=== PATIENT | male | born 1985 | race Caucasian/White ===

== ENCOUNTER 2021-06-26 20:38 | Inpatient (IN) | payer BC ==
[~2021-06-26] VITALS: Ht 175.3 cm; Wt 81.2 kg
[2021-06-26] MEDS ORDERED: LEVETIRACETAM 1000MG PREMIX 100 ML IV ONE (20:45)
[2021-06-26] MEDS ORDERED: SODIUM CHLORIDE 0.9% 1,000 ML IV ONE (20:45)
[2021-06-26] MEDS ORDERED: LORAZEPAM 2MG/ML CPJ IV ONE (20:45)
[2021-06-26 21:11] LABS: BASOPHILS % 0.3 % (0.0-2.0); EOSINOPHILS % 1.4 % (0.0-5.0); HEMATOCRIT. 45.2 % (42.0-52.0); HEMOGLOBIN. 15.1 g/dL (14.0-18.0); LYMPHOCYTES % 37.8 % (20.0-50.0); MEAN CORPUSCULAR HEMOGLOBIN 31.5 pg (28.0-32.0); MEAN CORPUSCULAR VOLUME 94.4 fL (80.0-94.0); MEAN PLATELET VOLUME 9.4 fl (7.4-10.4); MONOCYTES % 4.8 % (2.0-8.0); NEUTROPHILS % 55.7 % (40.0-76.0); PLATELET 176 x1000/uL (130-400); RED BLOOD CELL COUNT 4.79 mill/uL (4.7-6.1); RED CELL DISTRIBUTION WIDTH 13.6 % (11.6-14.6)
[2021-06-26 21:19] LABS: CHLORIDE 106 mEq/L (98-107)
[2021-06-26 21:34] LABS: CREATINE KINASE 102 IU/L (39-308); ETHANOL BLOOD < 10 mg/dL
[2021-06-27 00:48] LABS: CLARITY URINE CLEAR (CLEAR); COLOR URINE YELLOW (YELLOW); KETONES URINE TRACE (NEGATIVE); LEUKOCYTE ESTERASE URINE NEGATIVE (NEGATIVE); NITRITE URINE NEGATIVE (NEGATIVE); OCCULT BLOOD URINE NEGATIVE (NEGATIVE); PH URINE 5.5 (4.5-8.0); PROTEIN URINE 2+ (NEGATIVE); SPECIFIC GRAVITY URINE 1.024 (1.005-1.030); UROBILINOGEN URINE 0.2 E.U./dL (0.2-1.0)
[2021-06-27 01:11] LABS: *AMPHETAMINES SCREEN URINE NEGATIVE (NEGATIVE); *BARBITURATES SCREEN URINE NEGATIVE (NEGATIVE); *BENZODIAZEPINES SCREEN URINE PRESUMTIVE POSITIVE (NEGATIVE); *COCAINE SCREEN URINE NEGATIVE (NEGATIVE); CANNABINOID URINE SCREEN PRESUMTIVE POSITIVE (NEGATIVE); METHADONE URINE SCREEN NEGATIVE (NEGATIVE); OPIATES URINE SCREEN NEGATIVE (NEGATIVE); PHENCYCLIDINE URINE SCREEN NEGATIVE (NEGATIVE)
[2021-06-27 08:30] VITALS: BP 114/68
[2021-06-27 09:50] VITALS: BP 114/68
[2021-06-27] MEDS ORDERED: CLONIDINE 0.1MG TABLET PO PRN (10:30)
[2021-06-27] MEDS ORDERED: IPRATROPIUM/ALBUTEROL 0.5-3(2.5)MG/3ML NEB HHN PRN (10:30)
[2021-06-27] MEDS ORDERED: DOCUSATE SODIUM 100MG CAPSULE PO PRN (10:30)
[2021-06-27] MEDS ORDERED: ONDANSETRON HCL 4MG/2ML INJ IV PRN (10:30)
[2021-06-27] MEDS ORDERED: LORAZEPAM 0.5MG TABLET PO PRN (10:30)
[2021-06-27] MEDS ORDERED: ACETAMINOPHEN 325MG TABLET PO PRN ×2 (10:30)
[2021-06-27] MEDS ORDERED: LORAZEPAM 2MG/ML CPJ IV PRN (10:30)
[2021-06-27] MEDS ORDERED: HYDROCODONE/ACETAMINOPHEN 5/325MG TABLET PO PRN (10:30)
[2021-06-27] MEDS ORDERED: NALOXONE HCL 0.4MG/ML VIAL IV PRN (10:45)
[2021-06-27] MEDS ORDERED: LEVE750T4 PO (11:17)
[2021-06-27] MEDS ORDERED: LACO200T2 PO (11:17)
[2021-06-27] MEDS ORDERED: GABA-532 PO (11:17)
[2021-06-27] MEDS ORDERED: PRAZ2CAP2 PO (11:17)
[2021-06-27] MEDS ORDERED: SERT-112 PO (11:17)
[2021-06-27] MEDS: GABAPENTIN 300MG CAPSULE PO SCH ×2 (12:12→21:18)
[2021-06-27] MEDS: ENOXAPARIN 40MG/0.4ML SYR SUBCUT SCH (12:12)
[2021-06-27] MEDS: LEVETIRACETAM 250MG TABLET PO SCH ×2 (12:13→16:41)
[2021-06-27 12:30] VITALS: BP 136/74
[2021-06-27] MEDS: SERTRALINE HCL 100MG TABLET PO SCH (15:16)
[2021-06-27] MEDS ORDERED: NON FORMULARY PATIENT HOME MED XX ONE (15:30)
[2021-06-27 16:30] VITALS: BP 126/72
[2021-06-27] MEDS: LACOSAMIDE 100 MG TABLET PO SCH (16:40)
[2021-06-27] MEDS ORDERED: NON FORMULARY PATIENT HOME MED XX SCH (18:45)
[2021-06-27] MEDS ORDERED: SERTRALINE HCL 100MG TABLET PO SCH (19:00)
[2021-06-27 20:00] VITALS: BP 123/75
[2021-06-27] MEDS ORDERED: PRAZOSIN HCL 1MG CAPSULE PO SCH (21:00)
[2021-06-28] VITALS: BP 114/72
[2021-06-28 04:00] VITALS: BP 135/79
[2021-06-28 08:03] VITALS: BP 129/92
[2021-06-28] MEDS: LEVETIRACETAM 250MG TABLET PO SCH (09:00)
[2021-06-28] MEDS: GABAPENTIN 300MG CAPSULE PO SCH (09:00)
[2021-06-28] MEDS: LACOSAMIDE 100 MG TABLET PO SCH (09:00)
[2021-06-28] MEDS: SERTRALINE HCL 100MG TABLET PO SCH (09:00)
[2021-06-28] MEDS ORDERED: LACO150T2 MT (09:09)
[2021-06-28 10:09] VITALS: BP 129/92
[2021-06-28] MEDS: ENOXAPARIN 40MG/0.4ML SYR SUBCUT SCH (11:00)
== END 2021-06-28 14:30 | disposition home or self-care (01) | DRG 101 ==
LOC: ER 20:38 → MICUSO 21:08 → 6WST 06-27 07:30
PROVIDERS: ADMIT Internal Medicine; ATTEND Internal Medicine
DX: G40.401 Other generalized epilepsy and epileptic syndromes, not intractable, with status epilepticus (principal); E87.2 Acidosis; R80.9 Proteinuria, unspecified; E87.6 Hypokalemia; R94.6 Abnormal results of thyroid function studies; F12.90 Cannabis use, unspecified, uncomplicated; Z79.899 Other long term (current) drug therapy
CPT/HCPCS: 36415; 71045; 80053; 80305; 80320; 80339; 81003; 82140; 82550; 83605; 84443; 84484; 85025; 93005; 99291; J1650; J1953; J2060; J7030; G0480